=== PATIENT | female | born 1940 | race Caucasian/White ===

== ENCOUNTER 2022-10-19 09:04 | Outpatient (CLI) | payer MEDICARE, SELFPAY ==
--- NOTE | 2022-10-19 10:00 | CRLHL7_ITS ---
For Patients: As a result of the Century Cures Act, medical imaging exams and procedure reports are released immediately into your electronic medical record. You may view this report before your referring provider. If you have questions, please contact your health care provider. Indication: COLON CANCER Technique: Postcontrast CT chest, abdomen and pelvis. 92 cc Isovue 370 intravenous contrast. Please note that all CT scans at this facility use dose modulation, iterative reconstruction, and/or weight-based dosing when appropriate to reduce radiation dose to as low as reasonably achievable. Comparison: CT 03/24/2022, 10/20/2021, 04/21/2021. CT PET 12/05/2020. Findings: In the chest, there is a new nodule within the right upper lobe measuring 6 millimeters, 4/34. New nodule in the right upper lobe posteriorly is present measuring 3 millimeters, 4/20. Subtle nodule in the right middle lobe measuring 2 millimeters, 4/53. Patchy areas of dependent scarring noted bilaterally. No pleural effusion. No compression fracture or degenerative disc disease. Sternum intact. No acute fracture. Cardiomegaly. No mediastinal, hilar or axillary adenopathy. Severe degenerative changes at the right shoulder with large loose body in the left axillary recess, as before. Incidental calcification within the inferior pole of the left thyroid lobe again noted. In the abdomen, interval development of multiple hypodense masses throughout the liver, measuring up to 3.7 x 3.3 cm. Layering stones in the gallbladder lumen again noted. No biliary obstruction. Fatty atrophy of the pancreas. Small cystic structure associated with the pancreatic tail measuring 8 millimeters. Less than 1 cm cyst in the upper aspect of the spleen. Calcified splenic granulomas. Left adrenal gland normal. Similar appearance of the right adrenal gland with nodularity. No hydronephrosis. No solid renal mass. Atherosclerotic disease. Upper limits of normal upper retroperitoneal lymph nodes are present. No aortic aneurysm. Interval development of adenopathy adjacent to the distal aorta/aortic bifurcation measuring up to 1.6 cm. In the pelvis, interval development of an enlarged lymph node in the right inguinal region measuring 1.5 cm. Interval development of enlarged lymph node along the right external iliac chain measuring 1.7 cm, 3/108. Postop changes of partial colectomy. Extensive stool in the colon. No bowel obstruction. Sigmoid diverticulosis. The bladder is incompletely distended. Bladder wall prominence is present measuring 9 millimeters, possibly due to incomplete distension. Uterus is somewhat heterogeneous. Suggestion of wall thickening involving the rectum with adjacent stranding densities in the presacral fat along with subcentimeter lymph nodes. Degenerative disc disease and facet degeneration upper and mid lumbar spine with grade 1 degenerative spondylolisthesis of L3 on L4 and L4 on L5. No fracture is present. Impression: Interval development of multiple hypodense masses throughout the liver measuring up to 3.7 cm consistent with metastatic disease. Interval development of suspicious nodules within the right lung measuring up to 6 millimeters. Interval development of adenopathy in the distal periaortic and aortic bifurcation spaces along with the right inguinal region and right external iliac chain with lymph nodes measuring up to 1.7 cm. Concern for wall thickening of the rectum at the proximal and distal aspects with slight stranding in the presacral fat, may represent proctitis. However, there are surrounding ill-defined stranding densities along with subcentimeter lymph nodes, secondary malignancy not excluded. Please note that all CT scans at this facility use dose modulation, iterative reconstruction, and/or weight-based dosing when appropriate to reduce radiation dose to as low as reasonably achievable. Dictated by Haris Dean MD @ 10/19/2022 12:56:36 PM (Electronically Signed)
== END 2022-10-19 09:05 | disposition home or self-care (01) ==
LOC: CT 09:06
PROVIDERS: PCP Internal Medicine; Visit Provider Internal Medicine Hematology & Oncology
DX: C18.9 Malignant neoplasm of colon, unspecified (principal); R16.0 Hepatomegaly, not elsewhere classified; R91.1 Solitary pulmonary nodule; R59.0 Localized enlarged lymph nodes
CPT/HCPCS: 71260; 74177; 80053; 85025; Q9967

== ENCOUNTER 2022-11-24 10:59 | Outpatient (CLI) | payer MEDICARE, SELFPAY | END 2022-11-24 11:00 | disposition home or self-care (01) | PROVIDERS: PCP Internal Medicine; Visit Provider Family Medicine | DX: N39.0 Urinary tract infection, site not specified (principal) | CPT/HCPCS: 87086; 87186 ==

== ENCOUNTER 2023-01-28 12:22 | Outpatient (RCR) | payer MEDICARE, SELFPAY ==
[2022-10-19 09:46] LABS: Basophils Absolute Auto 0.03 K/uL (0.00-0.30); Basophils Percent Auto 0.3 % (0.0-3.0); Eosinophils Absolute Auto 0.29 K/uL (0.00-0.50); Eosinophils Percent Auto 2.8 % (0.0-7.0); Hemoglobin* 12.6 gm/dL (12.0-16.0); Immature Granulocytes Abs Auto 0.01 K/uL (0.00-0.30); Immature Granulocytes Pct Auto 0.1 %; Lymphocytes Absolute Auto 2.41 K/uL (0.90-2.90); Lymphocytes Percent Auto 23.3 % (20-44); Mean Corpuscular HGB Conc 34 gm/dL (32-36); Mean Corpuscular Hemoglobin 31 pg (26-34); Mean Corpuscular Volume 92 fL (80-100); Monocytes Percent Auto 5.9 % (0.0-11.0); Neutrophils Absolute Auto 7.01 K/uL (1.7-7.0); Neutrophils Percent Auto 67.6 % (42.0-72.0); Platelet Count* 323 K/uL (140-440); Red Blood Count 4.03 m/uL (4.00-5.20); White Blood Count* 10.36 K/uL (4.50-11.00)
[2022-10-19 09:48] LABS: Slide Review Reflex No
[2022-10-19 10:09] LABS: Chloride* 101 mmol/L (96-114)
[2022-10-19 10:10] LABS: Albumin* 4.2 g/dL (3.3-5.0); Sodium* 134 mmol/L (135-149)
[2022-10-19 10:12] LABS: Creatinine* 1.2 mg/dL (0.5-1.5); Estimated Glomerular Filt Rate 45 ml/min
[2022-10-19 10:13] LABS: Alanine Aminotransferase* 17 U/L (4-35); Alkaline Phosphatase* 124 U/L (40-150); Aspartate Amino Transferase* 49 U/L (12-35); Bilirubin Total* 0.5 mg/dL (0.1-1.5); Blood Urea Nitrogen* 26 mg/dL (7-30); Calcium* 9.7 mg/dL (8.4-10.6); Carbon Dioxide* 24 mmol/L (20-32); Glucose* 188 mg/dL (60-115); Total Protein* 7.6 g/dL (6.0-8.3)
[2022-10-19 10:52] LABS: Potassium* 4.7 mmol/L (3.6-5.1)
[2022-10-20 22:27] LABS: Carcinoembryonic Antigen 8.6 ng/mL
--- NOTE | 2022-11-09 09:39 | ONC.NURNOTE ---
Received call from surgeon's office stating that she received BRAF results into her inbox and is unable to forward onto [facility] providers. Results were printed and placed into Dr. Santos's inbox to address on Wednesday when he is back from [place]. His last note mentioned discussing with patient's son. There is no follow up scheduled for patient.
--- NOTE | 2022-12-17 15:41 | ONC.NURNOTE ---
Auto Heater Mechanic spoke with Sharon Spring and she has decided to try the capecitabine treatment again. When asked, she has discussed with Ajay. will forward to Dr Sanots for orders [facility] will contact Sharon Spring once orders placed- will need to be set up for upcoming appts message left on for Ajay to call
--- NOTE | 2022-12-29 11:54 | ONC.NURNOTE ---
Orders received yesterday from Dr Santos for dosing of capecitabine and bevacizumab Capecitabine 1000 mg BID X 14/21 days disp #56 3 refills eRX to [facility] by Paloma Costello
--- NOTE | 2022-12-29 12:08 | ONC.NURNOTE ---
Phone conversation with this abstract writer and son Ajay Dowd discussed start dates of Avastin and Capecitabine next steps reviewed- orders for [place], [place], teaching and start date appts Ajay requests follow up appt for his mom prior to starting, wants to make sure that she is stable to start treatment, he has noticed some memory changes Ajay lives in [place] but have vacation and availability to return to [place] if needed to support his mom Ajay reports that Sharon Spring has transportation support in [place] for appts Ajay voiced concerns about delay in starting treatment Follow up appt with Dr Maldonado, with teaching and lab and plan to start treatment the next day future appts also made which will accomodate Ajay's travel schedule to [place] late January Ajay reports having available vacation time to come to [place] sooner if needed This abstract writer will continue to communicate with Ajay and Sharon Spring about start dates and next steps
--- NOTE | 2022-12-29 13:04 | URNOTE ---
Received request for prior auth for Avastin ([id number]). Pt has Medicare and AARP supplement. Prior auth is not required. Services are based on medical necessity and follow medicare guidelines.
--- NOTE | 2023-01-01 14:24 | ONC.NURNOTE ---
Message left with Ajay per [facility] they spoke with Ajay and set up delivery of capecitabine this week appts reviewed and LM on VM
--- NOTE | 2023-01-08 14:15 | ONC.NURNOTE ---
Late entry note from 01/05/23 Sharon pSring phoned in today to cancel today's appt with Dr Maldonado, chemo teaching, and chemo start tomorrow She reports feeling unwell, mentioned episodes of diarrhea and wants to follow up with her PCP prior to starting any further treatment she has read the treatment handouts Sharon Spring states she left a message with Ajay, but has not talked to him about her decision leader writer confirmed with Sharon Spring that she will? call the [facility]3] back after her provider appt with her next step intentions
--- NOTE | 2023-01-08 16:06 | ONC.NURNOTE ---
Ajay left message to call- health technical writer did not reach Ajay on return call- LM to connect next week about next step for Sharon Spring
--- NOTE | 2023-01-19 14:57 | ONC.NURNOTE ---
Ash Kier Boiler did a follow up check in with Sharon Srping reports continued loose stools, she tried imodium per PCP recommendations and ended up with constipation reports decreased appetite she is not sure she wants to start capecitabine because of her underlying diarrhea she has appt with Dr Maldonado in 1 week, and was encouraged to keep that appt to discuss goals of care
--- NOTE | 2023-01-27 08:58 | ONC.NURNOTE ---
Ajay (patient's son) called stating he was frustrated by 2 angles: first mom doesn't want to do chemo and 2nd was we have done no labs and cancelled her appointment earlier. Armament Mechanic read notes from previous nursing regarding patient calling and cancelling her own appointment and then allowed him to vent for 10 minutes on how he is trying to take some leave because he doesn't feel like mom is doing well and the cancer has gotten worse because she can't eat much-has lost weight and is sleeping all the time. Ajay asked about hospice and a handicapped form. Let him know how we get hospice involved and let him know the primary usually does handicapped application but I'm sure we can help him with that since he said the primary told him she is fine to walk and wasn't needed at this time. Son is trying to get his work in line to be with mom more and also has a brother with health issues so he is a bit overwhelmed. Reassurance given to Ajay that we will hopefully help make a smooth transition since patient did ask family how they felt if she declines treatment and they all said it's up to her and they will support her.
--- NOTE | 2023-01-28 11:27 | PC.NURSE ---
Pt's son, Ajay, called today to report that his mother, Sharon Spring, will not come to her appointment today. RN relayed this message to RANDALL Cao and RANDALL Aponte. They will follow-up.
--- NOTE | 2023-01-28 16:13 | ONC.NURNOTE ---
Addendum entered by Kiley Steinberg RN 02/02/23 14:48: Jig Mill Operator attempted to contact Sharon Spring- richa answer on her home phone ghost writer talked to Ajay- richa further oncology follow up planned, but are available if anything further needed Ajay understands that ongoing care to be coordinated with Dr Duff Jig Mill Operator noted that hospice referral sent today by Dr Duff Original Note: Dr Duff's office contacted to request help with coordination of care with hospice referral
== END 2023-02-11 23:59 | disposition home or self-care (01) ==
LOC: CCIC 12:22
PROVIDERS: Internal Medicine Hematology & Oncology; Internal Medicine Medical Oncology; PCP Internal Medicine; Referring Provider Internal Medicine; Visit Provider Internal Medicine Hematology & Oncology
DX: C18.9 Malignant neoplasm of colon, unspecified (principal); C78.7 Secondary malignant neoplasm of liver and intrahepatic bile duct
CPT/HCPCS: 36415; 80053; 82378; 85025; 99211; 99212; 99214; 99215; 99441

== ENCOUNTER 2023-02-04 15:54 | Emergency (ER) | payer MEDICARE, SELFPAY ==
[2023-02-04 16:05] VITALS: BP 137/76; PULSE 131; RESP 18; TEMP 37.1; O2SAT 96; BMI 31.5
--- NOTE | 2023-02-04 17:28 | ED.ABDPAIN ---
HPI - Abdominal Pain General Time Seen by Provider: 17:29 Date Seen: 02/04/23 Chief Complaint: Abdominal Pain Stated Complaint: Loose Bowels Stomach Problems Cancer Pt Time Seen by Provider: 02/04/23 17:12 Source: patient and RN notes reviewed History of Present Illness HPI narrative: Madeleine is an 82-year-old female with underlying colon cancer in atrial fibrillation. She is coming in because she had lower abdominal pain earlier today. She is wondering if there is something to take for pain. She also has had loose stools. She is going small amounts that are smaller caliber but soft. She is getting sore on her behind. She is not using a barrier cream. She is listed as a hospice care patient but when ask her she is in hospice she states no she isn't. She starts talking about different family members that are coming to see her, her son that was able to get 3 weeks off [place] able to get a monitor from working comes today. She talks about a grandson that came home to see her. She does complain of loss of control of her bowels. She endorses that she went off blood thinner this week for which she is on it for underlying atrial fibrillation. I do review with her that that does put her at increased stroke risk and she does not want to be on it because it makes her bruise too easy. MD elicited complaint: abdominal pain Related Data Home Medications Medication Instructions Recorded Confirmed Activate PO 05/14/22 01/07/23 Melaleuca PO 05/14/22 01/07/23 Nutra view PO 05/14/22 01/07/23 Replenex PO 05/14/22 01/07/23 aspirin 81 mg tablet,delayed 81 mg PO DAILY 05/14/22 02/04/23 release mecobalamin (vitamin B12) 1,000 1,000 mcg sublingual QDAY 05/14/22 02/04/23 mcg disintegrating tablet,sublingual cholecalciferol (vitamin D3) 50 50 mcg PO QDAY 10/26/22 02/04/23 mcg (2,000 unit) capsule Previous Rx's Medication Instructions Recorded lisinopril 10 mg tablet 5 mg (1/2 x 10 mg) PO BID #90 tabs 05/14/22 metformin 1,000 mg tablet 1,000 mg PO QAM #90 tabs 05/14/22 rivaroxaban 20 mg tablet 20 mg PO DAILY #90 tabs 05/14/22 diltiazem HCl 180 mg capsule,24 180 mg PO BID #180 caps 07/08/22 hr,extended release Accu-Chek Guide test strips (blood #100 ea 09/07/22 sugar diagnostic) capecitabine 500 mg tablet 1,000 mg (2 x 500 mg) PO BID #56 12/28/22 tabs oxycodone 5 mg tablet 2.5 mg (1/2 x 5 mg) PO Q6H PRN 02/04/23 pain #10 tabs Allergies Allergy/AdvReac Type Severity Reaction Status Date / Time Quinolones Allergy Mild Rash Verified 02/04/23 16:13 codeine AdvReac Mild Nausea Verified 02/04/23 16:13 Review of Systems Status of ROS Reports: 6 or more systems reviewed and unremarkable except as noted in History and below [facility] Medical History History of cardiomyopathy (04/02/10) History of osteomyelitis (11/10/10) History of pleural effusion (04/02/10) Surgical History History of dilation and curettage (2020) History of tonsillectomy (05/28/10) Status post cataract extraction and insertion of intraocular lens Status post right hemicolectomy (2020) Social History Narrative: Hx Tobacco use Smoking Status: Never smoker Little interest or pleasure in doing things: not at all Feeling down, depressed, or hopeless: not at all Exam Const: Vital Signs, click to edit/add: Vital Signs - 24 hr 02/04/23 16:05 02/04/23 20:38 Temperature 98.7 F Pulse Rate [Pulse Oximeter] 131 H 101 H Respiratory Rate 18 18 Blood Pressure [Ri ght Upper Arm] 137/76 Pulse Oximetry 96 96 Oxygen Delivery Me thod Room Air Room Air Documenting provider has reviewed patient's vital signs: yes Common normals: no apparent distress, average body habitus, oriented x3, no limitations, healthy appearing and alert General appearance: cooperative, comfortable, well kempt and well developed HENMT: Common normals: normocephalic, head/scalp atraumatic, hearing grossly normal bilaterally and external nose normal Head and scalp: normocephalic and atraumatic Nose: external nose normal Eye: Common normals: PERRL, EOMs intact bilaterally, conjunctivae normal and no scleral icterus Conjunctiva: conjunctiva(e) normal Pupil: PERRL Neck & C-Spine: Common normals: full ROM, no lymphadenopathy and supple Resp: Common normals: normal respiratory effort, no retractions, no use of accessory muscles and clear to auscultation bilaterally Auscultation: clear to auscultation bilaterally Cardio: Rhythm: abnormal rhythm irregularly irregular GI: Common normals: Normal to inspection, nondistended, normoactive bowel sounds present, soft to palpation and non-tender Palpation: soft : Other: There is some smeared and stuck on stool in the intergluteal folds, can see some erythema in between the intergluteal area. Neuro: Common normals: oriented x3 Sensorium/orientation: alert Psych: Appearance: well kempt Course Course Hospital Course: Patient does give me approval to talk to her family. I will get a flat and upright to ensure that there is no major obstruction. Will look through her records to see what she has possibly tolerated, she certainly may be a candidate for opioid therapy with terminal colon cancer if indeed this is the situation. Again, need to look at records further. Will also obtain some baseline labs. Right now, her clinical abdominal exam is not all that concerning. Reevaluation(s) Reevaluation #1: Did call and talk to patient's son francine, patient had given me approval to do so. Patient was to meet with hospice but did not go last week. He opted to wait and see as he was going to be with her and get a feel for where she was at. She has decided to not proceed with any further treatment of her cancer. It is stands planned from my understanding talking with him that we are to go with keeping her comfortable and treat pain. I discussed with francine that sometimes complications can,, she is at risk for such things as bowel obstruction. I am doing a flat and upright. Right now she seems rather comfortable. We are going to trial a dose of oxycodone 2.5 mg and see how she tolerates this. He did discuss us possibly putting her in overnight, did review with him that the situation is critical for beds at this time. No available beds at any of the existing surrounding hospitals. We have called multiple times on other patients throughout the day. Thus, if there is nothing were going to intervene on and he is able to stay with her, this would be most helpful. He understands and agrees. We are waiting her abdominal imaging. It is taken sometime due to the volume and the patient load in the ER to get this done. Her white count is elevated but clinically she has no fever, could be intra-abdominal pathology. From my understanding, she wants no further treatment and thus would work towards the goal of pain management for her. Time: 19:11 Reevaluation #2: Patient comfortably sleeping. Nurses have cleaned her up, have gotten barrier cream on her. Seems to have tolerated the oxycodone up to this point. I am going to call her son at this time as I have her x-ray report back. Had lengthy conversation with her son stand regarding my concern that I believe she is evolving into a bowel obstruction. This time he does plan on bringing her home. I will send oxycodone with for pain management. He will get hospice involved. He did have questions as to timing. Reviewed with him it is very difficult but I think maybe days to weeks, again very difficult to say for sure. Note there were only larger quantities of oxycodone instymeds, 10 pills was the smallest. Time: 20:48 Vital Signs Vital signs: Initial Vital Signs Temperature 98.7 F 02/04/23 16:05 Temperature Source Temporal Artery Scan 02/04/23 16:05 Pulse Rate 131 H 02/04/23 16:05 Respiratory Rate 18 02/04/23 16:05 Blood Pressure 137/76 02/04/23 16:05 Blood Pressure Mean 96 02/04/23 16:05 Blood Pressure Position Sitting 02/04/23 16:05 Pulse Oximetry 96 02/04/23 16:05 Oxygen Delivery Method Room Air 02/04/23 16:05 Vital Signs Temperature 98.7 F 02/04/23 16:05 Pulse Rate 131 H 02/04/23 16:05 Respiratory Rate 18 02/04/23 16:05 Blood Pressure 137/76 02/04/23 16:05 Pulse Oximetry 96 02/04/23 16:05 Oxygen Delivery Method Room Air 02/04/23 16:05 Temperature 98.7 F 02/04/23 16:05 Pulse Rate 101 H 02/04/23 20:38 Respiratory Rate 18 02/04/23 20:38 Blood Pressure 137/76 02/04/23 16:05 Pulse Oximetry 96 02/04/23 20:38 Oxygen Delivery Method Room Air 02/04/23 20:38 MDM - Abdominal Pain Lab Data Attestation: I reviewed the patient's lab results. Labs: Lab Results 02/04/23 Range/Units 18:09 WBC 17.83 H (4.50-11.00) K/uL RBC 3.45 L (4.00-5.20) m/uL Hgb 9.7 L (12.0-16.0) gm/dL Hct 30.0 L (33.0-51.0) % MCV 87 (80-100) fL MCH 28 (26-34) pg MCHC 32 (32-36) gm/dL RDW Coeff of Imelda 15.1 (11.5-15.5) % Plt Count 488 H (140-440) K/uL Neut % (Auto) 81.8 H (42.0-72.0) % Lymph % (Auto) 10.0 L (20-44) % Hodgeman % (Auto) 7.0 (0.0-11.0) % Eos % (Auto) 0.7 (0.0-7.0) % Baso % (Auto) 0.2 (0.0-3.0) % Neut # (Auto) 14.60 H (1.7-7.0) K/uL Lymph # (Auto) 1.80 (0.90-2.90) K/uL Hodgeman # (Auto) 1.20 H (0.00-0.90) K/UL Eos # (Auto) 0.10 (0.00-0.50) K/uL Baso # (Auto) 0.00 (0.00-0.30) K/uL Sodium 132 L (135-149) mmol/L Potassium 3.9 (3.6-5.1) mmol/L Chloride 100 (96-114) mmol/L Carbon Dioxide 24 (20-32) mmol/L BUN 21 (7-30) mg/dL Creatinine 0.6 (0.5-1.5) mg/dL Estimated Creat Clear 35.26 Estimated GFR 89 ml/min Glucose 146 H (60-115) mg/dL Lactate 1.2 (0.5-1.9) mmol/L Calcium 8.9 (8.4-10.6) mg/dL Total Bilirubin 0.6 (0.1-1.5) mg/dL AST 78 H (12-35) U/L ALT 24 (4-35) U/L Alkaline Phosphatase 306 H (40-150) U/L Total Protein 6.6 (6.0-8.3) g/dL Albumin 3.6 (3.3-5.0) g/dL Imaging Data Abdominal x-ray: Attestation: I have reviewed the pertinent imaging results. Radiologist's impression: Patient: FUAD MOBLEY Facility:?[facility] Patient ID:?[id number] Site Patient ID:?[id number]. Site :?[id number] Study:?XRay Abdomen 2 views-02/04/2023 7:24:12 PM Ordering Physician:?Jose Felix Final Report: Indication: Abdomen pain. Technique: Abdomen 2 view. Comparison: None. Findings/impression: Bowel: Anastomotic sutures identified in the right lower quadrant. Above-average colonic stool volume. Other: Possible left renal calcifications. No sign of free air. No sign of soft tissue mass. Osseous structures are unremarkable for age. Dictated by Jonh Bahena MD @ 02/04/2023 8:40:31 PM (Electronic Signature) Discharge Plan Discharge Clinical Impression: Colon carcinoma metastatic to liver, Abdominal pain Patient Disposition: Home w/ Parent or Adult Condition: Unchanged Additional Instructions: I do wonder if you are starting to obstruct from the colon cancer. This could be contributing to the small amounts of bowel that are coming through. You can try to loosen the bowel more with such things as MiraLax and senna but it is likely to increase the fecal incontinence in may increase the irritation of the skin. For pain that is mild, can take Tylenol 1000 mg 3 times a day. I will be sending a prescription for oxycodone, 10 tablets from [facility] and a prescription sent to the pharmacy. This is to be used for more moderate to severe pain. This can be constipating. It is necessary that you get enrolled with hospice. I think the services that they can help with in end of life situations are amazing and extremely helpful. It is likely that appetite for solids as well as liquids will continue to diminish. If you have severe pain that is uncontrolled, start vomiting which would suggest complete bowel obstruction, return for further evaluation. Activity Level: Activity as Tolerated Prescriptions: New oxycodone 5 mg tablet 2.5 mg PO Q6H PRN (Reason: pain) Qty: 10 0RF No Action cholecalciferol (vitamin D3) 50 mcg (2,000 unit) capsule 50 mcg PO QDAY aspirin 81 mg tablet,delayed release (DR/EC) 81 mg PO DAILY Melaleuca PO Activate PO Replenex PO Nutra view PO mecobalamin (vitamin B12) 1,000 mcg tablet,disintegrating 1,000 mcg sublingual QDAY Rx Instructions: place tablet under tongue and allow to dissolve for at least30 secs before swallowing metformin 1,000 mg tablet 1,000 mg PO QAM Qty: 90 3RF lisinopril 10 mg tablet 5 mg PO BID Qty: 90 3RF rivaroxaban 20 mg tablet 20 mg PO DAILY Qty: 90 3RF Rx Instructions: WITH MEAL diltiazem HCl 180 mg capsule,extended release 24 hr 180 mg PO BID Qty: 180 3RF (DME) Accu-Chek Guide test strips Strip See Rx Instructions .Route Qty: 100 0RF Rx Instructions: Patient to test Once daily capecitabine 500 mg tablet 1,000 mg PO BID Qty: 56 3RF Rx Instructions: for 14 days per 21-day cycle; must administer with water 30 minutes after a meal Follow Up/Referrals: Veronica Duff MD [Primary Care Provider] - Stand Alone Forms: [facility] Info Instructions
--- NOTE | 2023-02-04 17:44 | CRLHL7_ITS ---
For Patients: As a result of the Cures Act, medical imaging exams and procedure reports are released immediately into your electronic medical record. You may view this report before your referring provider. If you have questions, please contact your health care provider. Indication: Abdomen pain. Technique: Abdomen 2 view. Comparison: None. Findings/impression: Bowel: Anastomotic sutures identified in the right lower quadrant. Above-average colonic stool volume. Other: Possible left renal calcifications. No sign of free air. No sign of soft tissue mass. Osseous structures are unremarkable for age. Dictated by Jonh Bahena MD @ 02/04/2023 8:40:31 PM (Electronically Signed)
[2023-02-04 18:11] LABS: Lactate* 1.2 mmol/L (0.5-1.9)
[2023-02-04 18:12] LABS: Basophils Percent Auto 0.2 % (0.0-3.0); Eosinophils Percent Auto 0.7 % (0.0-7.0); Hemoglobin* 9.7 gm/dL (12.0-16.0); Immature Granulocytes Pct Auto 0.3 %; Mean Corpuscular HGB Conc 32 gm/dL (32-36); Mean Corpuscular Hemoglobin 28 pg (26-34); Mean Corpuscular Volume 87 fL (80-100); Neutrophils Percent Auto 81.8 % (42.0-72.0); Platelet Count* 488 K/uL (140-440); RDW Coefficient of Variation % 15.1 % (11.5-15.5); Red Blood Count 3.45 m/uL (4.00-5.20); White Blood Count* 17.83 K/uL (4.50-11.00)
[2023-02-04 18:18] LABS: Slide Review Reflex No
[2023-02-04 18:26] LABS: Albumin* 3.6 g/dL (3.3-5.0); Chloride* 100 mmol/L (96-114); Potassium* 3.9 mmol/L (3.6-5.1); Sodium* 132 mmol/L (135-149)
[2023-02-04 18:28] LABS: Creatinine* 0.6 mg/dL (0.5-1.5); Est. Creatinine Clearance* 35.26; Estimated Glomerular Filt Rate 89 ml/min
[2023-02-04 18:29] LABS: Alanine Aminotransferase* 24 U/L (4-35); Alkaline Phosphatase* 306 U/L (40-150); Aspartate Amino Transferase* 78 U/L (12-35); Bilirubin Total* 0.6 mg/dL (0.1-1.5); Blood Urea Nitrogen* 21 mg/dL (7-30); Calcium* 8.9 mg/dL (8.4-10.6); Carbon Dioxide* 24 mmol/L (20-32); Glucose* 146 mg/dL (60-115); Total Protein* 6.6 g/dL (6.0-8.3)
[2023-02-04] MEDS: OXYCODONE 5 MG TABLET 2.5 MG PO (19:50)
[2023-02-04 20:38] VITALS: PULSE 101; RESP 18; O2SAT 96
== END 2023-02-04 21:33 | disposition home or self-care (01) ==
PROVIDERS: Emergency Provider Family Medicine; PCP Internal Medicine
DX: C18.9 Malignant neoplasm of colon, unspecified (principal); C78.7 Secondary malignant neoplasm of liver and intrahepatic bile duct; R10.9 Unspecified abdominal pain
CPT/HCPCS: 36415; 74019; 80053; 83605; 85025; 99284; A9270